=== PATIENT | male | born 1990 | race Hispanic/Latino ===

== ENCOUNTER 2017-05-04 03:10 | Outpatient (CLI) | payer BC | END 2017-05-04 03:11 | disposition home or self-care (01) | LOC: BICMRI 03:10 | PROVIDERS: ATTEND Physical Medicine & Rehabilitation | DX: M54.9 Dorsalgia, unspecified (principal); G24.3 Spasmodic torticollis; Q27.30 Arteriovenous malformation, site unspecified; M62.838 Other muscle spasm | CPT/HCPCS: 72141 ==